=== PATIENT | male | born 1945 | race Asian ===

== ENCOUNTER 2024-02-28 00:43 | Inpatient (IN) ==
[2024-02-28 01:38] LABS: INR 1.04 (0.83-1.13)
[2024-02-28 01:41] LABS: Hematocrit 40.8 % (38-53); Hemoglobin 13.9 g/dL (13.2-16.3); Mean Corpuscular Hemoglobin 29.4 pg (27-33); Mean Corpuscular Volume 86.4 fL (80-97); Mean Platelet Volume 8.9 fL (7.5-11.2); Platelet Count 267 10^3/uL (150-450); Red Blood Count 4.72 10^6/uL (4.06-5.63); Red Cell Distribution Width 14.4 % (12-17); White Blood Count 5.7 10^3/uL (3.6-10.2)
[2024-02-28 01:44] LABS: ABS Lymphocytes 0.7 10^3/uL (1.0-4.8); ABS Monocytes 1.2 10^3/uL (0.0-1.1); ABS Neutrophils 3.9 10^3/uL (1.5-7.6); ABS Nucleated RBC 0.01 10^3/ul; Eosinophil % 0.2 %; Lymphocyte % 11.9 %; Nucleated Red Blood Cells % 0.1 %/100WBC (0.0-0.8)
[2024-02-28] MEDS ORDERED: Ondansetron 4 mg VIAL 2 MG/ML 2 ml VIAL ONE (02:34)
[2024-02-28 05:28] LABS: ALT 42 U/L (7-52); AST 33 U/L (13-39); Albumin 3.9 g/dL (3.2-5.2); Albumin/Globulin Ratio 1.4 (1-3); Alcohol, S < 13 mg/dL (<13); Alkaline Phosphatase 61 U/L (35-149); Anion Gap 16 mmol/L (2-16); Blood Urea Nitrogen 37 mg/dL (6-24); CO2 Carbon Dioxide 31 mmol/L (22-32); Calcium 8.8 mg/dL (8.6-10.3); Chloride 89 mmol/L (101-111); Creatinine, Serum 1.47 mg/dL (0.67-1.17); Globulin 2.7 g/dL (2-4); Glucose 143 mg/dL (70-100); Potassium 3.3 mmol/L (3.5-5.0); Sodium 136 mmol/L (135-145); Total Bilirubin 1.8 mg/dL (0.2-1.0); Total Protein 6.6 g/dL (6.4-8.9); eGFR CKD-EPI 49.1 (>60)
[2024-02-28] MEDS: Iodixanol (CONTRAST) 320 MG/ML 100 ML SDV IV ONE (06:23)
[2024-02-28] MEDS: Lactated Ringers 1000 ml BAG 1,000 ML IV ONE (10:10)
[2024-02-28] MEDS: Thiamine 100 MG/ML 2 ml VIAL (200 mg) IM ONE (10:14)
[2024-02-28] MEDS: Ondansetron 4 mg VIAL 2 MG/ML 2 ml VIAL IV PRN (10:18)
[2024-02-28 10:25] LABS: Magnesium 2.9 mg/dL (1.9-2.7)
[2024-02-28 10:40] LABS: Carcinoembryonic Antigen 25.8 ng/mL (0.1-5.0)
[2024-02-28] MEDS: KCL 20 MEQ/100 ML IVPREMIX 20 MEQ/100 ML BAG IV SCH (11:00)
[2024-02-28] MEDS ORDERED: Enalaprilat IV 1.25 mg/ml 1 ml VIAL (1.25 MG) IV PRN (15:06)
[2024-02-28] MEDS: Acetaminophen IV 1 GM/100ML 1,000 MG/100 ML BAG IV PRN (16:49)
[2024-02-28] MEDS ORDERED: LORazepam 2 mg VIAL 1 ml IV PUSH SCH (21:00)
[2024-02-29 06:24] LABS: ABS Eosinophils 0.1 10^3/uL (0.0-0.5); ABS Lymphocytes 0.6 10^3/uL (1.0-4.8); ABS Monocytes 0.7 10^3/uL (0.0-1.1); ABS Neutrophils 5.6 10^3/uL (1.5-7.6); ABS Nucleated RBC 0.01 10^3/ul; Eosinophil % 1.3 %; Hematocrit 40.3 % (38-53); Hemoglobin 13.4 g/dL (13.2-16.3); Mean Corpuscular Hgb Conc 33.2 g/dL (31-36); Mean Corpuscular Volume 87.5 fL (80-97); Mean Platelet Volume 9.2 fL (7.5-11.2); Nucleated Red Blood Cells % 0.1 %/100WBC (0.0-0.8); Platelet Count 270 10^3/uL (150-450); Red Cell Distribution Width 14.6 % (12-17); White Blood Count 7.1 10^3/uL (3.6-10.2)
[2024-02-29 06:43] LABS: Calcium 8.2 mg/dL (8.6-10.3); Creatinine, Serum 0.9 mg/dL (0.67-1.17); Magnesium 2.8 mg/dL (1.9-2.7); Potassium 3.5 mmol/L (3.5-5.0); eGFR CKD-EPI 88.5 (>60)
[2024-02-29] MEDS: Lactated Ringers 1000 ml BAG 1,000 ML IV SCH (08:56)
[2024-02-29] MEDS: Multivitamins/Minerals TAB PO SCH (11:01)
[2024-02-29] MEDS: Thiamine 100 MG/ML 2 ml VIAL 100 MG in NS 0.9% 50 ML 50 ML IV SCH (11:49)
[2024-02-29] MEDS ORDERED: Haloperidol 5 mg/ml SDV IV/IM 5 MG/ML AMP IV SLOW PU PRN (12:27)
[2024-02-29] MEDS ORDERED: fentaNYL 100 mcg/2 ml 50 MCG/ML VIAL IV PRN (12:27)
[2024-02-29] MEDS ORDERED: Naloxone 0.4 mg VIAL 0.4 mg/ml 1 ml VIAL IV PRN (12:27)
[2024-02-29] MEDS ORDERED: Lidocaine 4 MG/ML IV PREMIX 200 MG/50 ML BAG IV SCH (13:00)
[2024-02-29] MEDS: Pantoprazole VIAL 40 MG VIAL IV SCH (13:25)
[2024-02-29] MEDS ORDERED: diazePAM INJ CARPUJECT 5 MG/ML SYRINGE IV PRN (13:42)
[2024-02-29] MEDS: Enoxaparin 40 MG/0.4 ML SYR SUBCUT SCH (18:06)
[2024-03-01 07:13] LABS: ABS Eosinophils 0.2 10^3/uL (0.0-0.5); ABS Lymphocytes 0.7 10^3/uL (1.0-4.8); ABS Monocytes 0.8 10^3/uL (0.0-1.1); ABS Neutrophils 4.7 10^3/uL (1.5-7.6); Hematocrit 39.5 % (38-53); Hemoglobin 13.3 g/dL (13.2-16.3); Lymphocyte % 10.2 %; Mean Corpuscular Hemoglobin 29.3 pg (27-33); Mean Corpuscular Hgb Conc 33.6 g/dL (31-36); Mean Corpuscular Volume 87.2 fL (80-97); Mean Platelet Volume 9.2 fL (7.5-11.2); Platelet Count 270 10^3/uL (150-450); Red Blood Count 4.53 10^6/uL (4.06-5.63); Red Cell Distribution Width 14.3 % (12-17); White Blood Count 6.4 10^3/uL (3.6-10.2)
[2024-03-01 07:39] LABS: Albumin 3.1 g/dL (3.2-5.2); Albumin/Globulin Ratio 1.3 (1-3); Calcium 7.8 mg/dL (8.6-10.3); Creatinine, Serum 0.7 mg/dL (0.67-1.17); Globulin 2.4 g/dL (2-4); Magnesium 2.6 mg/dL (1.9-2.7); Potassium 3.6 mmol/L (3.5-5.0); Total Bilirubin 0.8 mg/dL (0.2-1.0); Total Protein 5.5 g/dL (6.4-8.9); eGFR CKD-EPI 95.5 (>60)
[2024-03-01] MEDS: Lactated Ringers 1000 ml BAG 1,000 ML IV SCH (09:37)
[2024-03-01] MEDS: Buffered Lidocaine 1% SYRIN 1 ml INTRADERM ONE (14:14)
[2024-03-01] MEDS: Scopolamine 1 mg/72hr PATCH TRANSDERM ONE (14:14)
[2024-03-02 02:00] LABS: Hematocrit 37.4 % (38-53); Hemoglobin 12.1 g/dL (13.2-16.3)
[2024-03-02 07:46] LABS: ABS Eosinophils 0.1 10^3/uL (0.0-0.5); ABS Lymphocytes 0.7 10^3/uL (1.0-4.8); ABS Monocytes 0.8 10^3/uL (0.0-1.1); ABS Neutrophils 4.1 10^3/uL (1.5-7.6); Eosinophil % 1.3 %; Hematocrit 33.5 % (38-53); Lymphocyte % 12.1 %; Mean Corpuscular Hemoglobin 28.6 pg (27-33); Mean Corpuscular Hgb Conc 32.7 g/dL (31-36); Mean Corpuscular Volume 87.5 fL (80-97); Mean Platelet Volume 9.6 fL (7.5-11.2); Nucleated Red Blood Cells % 0.1 %/100WBC (0.0-0.8); Platelet Count 261 10^3/uL (150-450); Red Blood Count 3.83 10^6/uL (4.06-5.63); Red Cell Distribution Width 14.6 % (12-17); White Blood Count 5.7 10^3/uL (3.6-10.2)
[2024-03-02 08:00] LABS: Calcium 7.4 mg/dL (8.6-10.3); Creatinine, Serum 0.78 mg/dL (0.67-1.17); Magnesium 2.3 mg/dL (1.9-2.7); Potassium 3.8 mmol/L (3.5-5.0); eGFR CKD-EPI 92.4 (>60)
[2024-03-02] MEDS: Pantoprazole VIAL 40 MG VIAL IV SCH (10:14)
[2024-03-02 13:33] LABS: Hematocrit 33.5 % (38-53); Hemoglobin 11.2 g/dL (13.2-16.3)
[2024-03-02 18:59] LABS: Hematocrit 36.1 % (38-53); Hemoglobin 11.3 g/dL (13.2-16.3)
[2024-03-03 06:23] LABS: Hematocrit 32.2 % (38-53); Hemoglobin 10.4 g/dL (13.2-16.3); Mean Corpuscular Hemoglobin 28.1 pg (27-33); Mean Corpuscular Hgb Conc 32.3 g/dL (31-36); Mean Corpuscular Volume 87.2 fL (80-97); Mean Platelet Volume 9.3 fL (7.5-11.2); Platelet Count 279 10^3/uL (150-450); Red Cell Distribution Width 14.1 % (12-17); White Blood Count 9.4 10^3/uL (3.6-10.2)
[2024-03-03] MEDS ORDERED: Midazolam 2 mg/2 ml VIAL 1 mg/ml 2 ml VIAL (2 mg) ONE (06:28)
[2024-03-03] MEDS ORDERED: fentaNYL 100 mcg/2 ml 50 MCG/ML VIAL ONE (06:28)
[2024-03-03] MEDS ORDERED: Rocuronium 50 mg VIAL 10 mg/ml 5 ml VIAL (50 mg) ONE ×3 (06:28→10:46)
[2024-03-03] MEDS ORDERED: Succinylcholine 200 mg VIAL 20 mg/ml 10 ml VIAL (200 mg) ONE (06:34)
[2024-03-03] MEDS ORDERED: Dexamethasone IV 4 MG/ML VIAL 1 ml VIAL ONE ×2 (06:34→11:44)
[2024-03-03] MEDS ORDERED: Lidocaine 2% PF 5 ML VIAL ONE (06:34)
[2024-03-03] MEDS ORDERED: Phenylephrine 40 mcg/mL 10mL (400mcg) SYRINGE ONE ×2 (06:34→09:29)
[2024-03-03] MEDS ORDERED: Ondansetron 4 mg VIAL 2 MG/ML 2 ml VIAL ONE (06:34)
[2024-03-03] MEDS ORDERED: Glycopyrrolate IV 0.2 MG/ML 1 ML VIAL ONE (06:34)
[2024-03-03] MEDS ORDERED: Propofol 10 MG/ML 20 ML BTL ONE (06:34)
[2024-03-03 06:59] LABS: Calcium 7.3 mg/dL (8.6-10.3); Creatinine, Serum 0.78 mg/dL (0.67-1.17); Potassium 3.4 mmol/L (3.5-5.0); eGFR CKD-EPI 92.4 (>60)
[2024-03-03 08:16] LABS: ABS Lymphocytes 0.6 10^3/uL (1.0-4.8); ABS Monocytes 0.2 10^3/uL (0.0-1.1); ABS Neutrophils 8.5 10^3/uL (1.5-7.6); Eosinophil % 0.3 %; Lymphocyte % 6.9 %; RBC Morphology Normal (Normal)
[2024-03-03] MEDS ORDERED: Phenylephrine IV 10 MG/ML 1 ml VIAL ONE (09:29)
[2024-03-03] MEDS ORDERED: Bupivacaine 0.5% SDV PF 30ML VIAL ONE (09:33)
[2024-03-03] MEDS ORDERED: HYDROmorphone 0.5 MG/0.5 ML SYRINGE ONE (11:52)
[2024-03-03] MEDS: KCL 20 MEQ/100 ML IVPREMIX 20 MEQ/100 ML BAG IV ONE (14:43)
[2024-03-03] MEDS ORDERED: Morphine 2 MG/ML SYRINGE IV PRN (15:54)
[2024-03-03 21:25] LABS: Hematocrit 29.6 % (38-53); Hemoglobin 9.9 g/dL (13.2-16.3)
[2024-03-03] MEDS: Prochlorperazine 5 mg/ml 2 ml VIAL (10 mg) IV PRN (23:41)
[2024-03-04 06:19] LABS: ABS Lymphocytes 0.4 10^3/uL (1.0-4.8); ABS Monocytes 0.5 10^3/uL (0.0-1.1); ABS Neutrophils 10.9 10^3/uL (1.5-7.6); ABS Nucleated RBC 0.01 10^3/ul; Hematocrit 28.4 % (38-53); Hemoglobin 9.6 g/dL (13.2-16.3); Lymphocyte % 3.5 %; Mean Corpuscular Hemoglobin 29.4 pg (27-33); Mean Corpuscular Hgb Conc 33.8 g/dL (31-36); Mean Corpuscular Volume 86.9 fL (80-97); Mean Platelet Volume 9.3 fL (7.5-11.2); Platelet Count 266 10^3/uL (150-450); Red Blood Count 3.27 10^6/uL (4.06-5.63); Red Cell Distribution Width 14.3 % (12-17); White Blood Count 11.8 10^3/uL (3.6-10.2)
[2024-03-04 06:35] LABS: Calcium 6.8 mg/dL (8.6-10.3); Creatinine, Serum 0.72 mg/dL (0.67-1.17); Magnesium 2.4 mg/dL (1.9-2.7); Phosphorus 2.8 mg/dL (2.5-5.0); Potassium 3.3 mmol/L (3.5-5.0); eGFR CKD-EPI 94.7 (>60)
[2024-03-04] MEDS: KCL 20 MEQ/100 ML IVPREMIX 20 MEQ/100 ML BAG IV SCH (09:18)
[2024-03-04] MEDS: Thiamine 100 MG/ML 2 ml VIAL 100 MG in NS 0.9% 50 ML 50 ML IV SCH (12:02)
[2024-03-04 15:04] LABS: Albumin 2.3 g/dL (3.2-5.2)
[2024-03-04] MEDS: Enoxaparin 40 MG/0.4 ML SYR SUBCUT SCH (17:19)
[2024-03-05 07:24] LABS: ABS Lymphocytes 0.7 10^3/uL (1.0-4.8); ABS Monocytes 0.4 10^3/uL (0.0-1.1); ABS Neutrophils 9.1 10^3/uL (1.5-7.6); ABS Nucleated RBC 0.01 10^3/ul; Eosinophil % 0.3 %; Hematocrit 22.8 % (38-53); Hemoglobin 7.6 g/dL (13.2-16.3); Lymphocyte % 6.8 %; Mean Corpuscular Hemoglobin 29.1 pg (27-33); Mean Corpuscular Hgb Conc 33.4 g/dL (31-36); Mean Corpuscular Volume 87.2 fL (80-97); Mean Platelet Volume 8.6 fL (7.5-11.2); Platelet Count 242 10^3/uL (150-450); Red Blood Count 2.61 10^6/uL (4.06-5.63); Red Cell Distribution Width 14.3 % (12-17); White Blood Count 10.2 10^3/uL (3.6-10.2)
[2024-03-05 08:50] LABS: Calcium 6.6 mg/dL (8.6-10.3); Creatinine, Serum 0.52 mg/dL (0.67-1.17); Potassium 2.8 mmol/L (3.5-5.0); eGFR CKD-EPI 104.5 (>60)
[2024-03-05] MEDS: Multivitamins/Minerals TAB PO SCH (09:42)
[2024-03-05] MEDS: KCL 20 MEQ/100 ML IVPREMIX 20 MEQ/100 ML BAG IV SCH ×2 (10:22→16:05)
[2024-03-05 13:15] LABS: Hematocrit 24.1 % (38-53); Hemoglobin 8.1 g/dL (13.2-16.3)
[2024-03-05] MEDS: Potassium EFFERVES 25 meq TAB PO ONE ×2 (13:19→15:21)
[2024-03-05 19:00] LABS: Calcium 6.9 mg/dL (8.6-10.3); Creatinine, Serum 0.52 mg/dL (0.67-1.17); Magnesium 2.1 mg/dL (1.9-2.7); Potassium 2.9 mmol/L (3.5-5.0); eGFR CKD-EPI 104.5 (>60)
[2024-03-06] MEDS: KCL 20 MEQ/100 ML IVPREMIX 20 MEQ/100 ML BAG IV SCH (00:48)
[2024-03-06 08:28] LABS: ABS Lymphocytes 0.7 10^3/uL (1.0-4.8); ABS Monocytes 0.4 10^3/uL (0.0-1.1); ABS Neutrophils 6.8 10^3/uL (1.5-7.6); ABS Nucleated RBC 0.01 10^3/ul; Eosinophil % 0.2 %; Hemoglobin 8.4 g/dL (13.2-16.3); Lymphocyte % 9.3 %; Mean Corpuscular Hemoglobin 29.2 pg (27-33); Mean Corpuscular Hgb Conc 33.7 g/dL (31-36); Mean Corpuscular Volume 86.8 fL (80-97); Mean Platelet Volume 8.8 fL (7.5-11.2); Nucleated Red Blood Cells % 0.1 %/100WBC (0.0-0.8); Platelet Count 259 10^3/uL (150-450); Red Blood Count 2.88 10^6/uL (4.06-5.63); Red Cell Distribution Width 14.4 % (12-17)
[2024-03-06 08:49] LABS: Albumin 2.4 g/dL (3.2-5.2); Calcium 7.2 mg/dL (8.6-10.3); Creatinine, Serum 0.49 mg/dL (0.67-1.17); Globulin 2.3 g/dL (2-4); Potassium 3.2 mmol/L (3.5-5.0); Total Bilirubin 0.4 mg/dL (0.2-1.0); Total Protein 4.7 g/dL (6.4-8.9); eGFR CKD-EPI 106.4 (>60)
[2024-03-06 10:21] LABS: Magnesium 2.1 mg/dL (1.9-2.7); Phosphorus 1.3 mg/dL (2.5-5.0)
[2024-03-06 11:22] LABS: Carcinoembryonic Antigen 12.6 ng/mL (0.1-5.0)
[2024-03-06] MEDS: Potassium Phosphate IV 15 MMOL in NS 0.9% 250 ml 250 ML IVPB ONE (12:00)
[2024-03-06] MEDS: Potassium Chlor 20 meq TAB.ER PO SCH (12:21)
[2024-03-06 20:17] LABS: Calcium 7.4 mg/dL (8.6-10.3); Creatinine, Serum 0.56 mg/dL (0.67-1.17); Magnesium 2.2 mg/dL (1.9-2.7); Phosphorus 2.3 mg/dL (2.5-5.0); Potassium 3.5 mmol/L (3.5-5.0); eGFR CKD-EPI 102.2 (>60)
[2024-03-07 06:25] LABS: Calcium 6.9 mg/dL (8.6-10.3); Creatinine, Serum 0.54 mg/dL (0.67-1.17); Magnesium 2.1 mg/dL (1.9-2.7); Phosphorus 2.5 mg/dL (2.5-5.0); Potassium 3.4 mmol/L (3.5-5.0); eGFR CKD-EPI 103.3 (>60)
[2024-03-07 09:27] LABS: ABS Eosinophils 0.1 10^3/uL (0.0-0.5); ABS Lymphocytes 0.7 10^3/uL (1.0-4.8); ABS Monocytes 0.4 10^3/uL (0.0-1.1); ABS Neutrophils 6.7 10^3/uL (1.5-7.6); Eosinophil % 0.7 %; Hematocrit 27.4 % (38-53); Hemoglobin 9.2 g/dL (13.2-16.3); Lymphocyte % 8.8 %; Mean Corpuscular Hemoglobin 28.9 pg (27-33); Mean Corpuscular Hgb Conc 33.4 g/dL (31-36); Mean Corpuscular Volume 86.7 fL (80-97); Mean Platelet Volume 8.8 fL (7.5-11.2); Nucleated Red Blood Cells % 0.1 %/100WBC (0.0-0.8); Platelet Count 276 10^3/uL (150-450); Red Blood Count 3.17 10^6/uL (4.06-5.63); Red Cell Distribution Width 14.3 % (12-17); White Blood Count 7.9 10^3/uL (3.6-10.2)
[2024-03-07] MEDS: Potassium Chlor 20 meq TAB.ER PO ONE (10:09)
[2024-03-07] MEDS: KCL 20 MEQ/100 ML IVPREMIX 20 MEQ/100 ML BAG IV ONE (10:41)
[2024-03-07] MEDS: cefTRIAXone 1 gm/50 mL D5W 1 GM/50 ML BAG IV ONE (12:29)
[2024-03-07] MEDS: Heparin 5000 UNITS/ML 1 mL VIAL SUBCUT SCH (12:49)
[2024-03-07] MEDS: Azithromycin 500 mg/250 ml NS 500 MG/250 ML BAG IVPB SCH (13:19)
[2024-03-08 06:50] LABS: ABS Eosinophils 0.1 10^3/uL (0.0-0.5); ABS Monocytes 0.5 10^3/uL (0.0-1.1); ABS Neutrophils 4.4 10^3/uL (1.5-7.6); Eosinophil % 1.1 %; Hematocrit 23.2 % (38-53); Hemoglobin 7.9 g/dL (13.2-16.3); Lymphocyte % 16.8 %; Mean Corpuscular Hemoglobin 29.4 pg (27-33); Mean Corpuscular Hgb Conc 34.2 g/dL (31-36); Mean Corpuscular Volume 85.9 fL (80-97); Mean Platelet Volume 8.8 fL (7.5-11.2); Platelet Count 338 10^3/uL (150-450); Red Cell Distribution Width 14.4 % (12-17)
[2024-03-08 07:04] LABS: Calcium 6.8 mg/dL (8.6-10.3); Creatinine, Serum 0.55 mg/dL (0.67-1.17); Potassium 2.8 mmol/L (3.5-5.0); eGFR CKD-EPI 102.7 (>60)
[2024-03-08] MEDS: KCL 20 MEQ/100 ML IVPREMIX 20 MEQ/100 ML BAG IV SCH (08:46)
[2024-03-08] MEDS: Potassium Chlor 20 meq TAB.ER PO ONE ×2 (11:50→18:32)
[2024-03-08 15:55] LABS: Hemoglobin 8.2 g/dL (13.2-16.3)
[2024-03-08 16:40] LABS: Calcium 7.1 mg/dL (8.6-10.3); Creatinine, Serum 0.59 mg/dL (0.67-1.17); Potassium 2.9 mmol/L (3.5-5.0); eGFR CKD-EPI 100.6 (>60)
[2024-03-09 06:33] LABS: Hematocrit 23.1 % (38-53); Hemoglobin 7.8 g/dL (13.2-16.3); Mean Corpuscular Hgb Conc 33.7 g/dL (31-36); Mean Corpuscular Volume 86.2 fL (80-97); Mean Platelet Volume 7.8 fL (7.5-11.2); Platelet Count 385 10^3/uL (150-450); Red Blood Count 2.68 10^6/uL (4.06-5.63); Red Cell Distribution Width 14.7 % (12-17); White Blood Count 5.3 10^3/uL (3.6-10.2)
[2024-03-09 06:57] LABS: Anion Gap 5 mmol/L (2-16); Blood Urea Nitrogen 2 mg/dL (6-24); CO2 Carbon Dioxide 22 mmol/L (22-32); Chloride 111 mmol/L (101-111); Creatinine, Serum 0.55 mg/dL (0.67-1.17); Glucose 100 mg/dL (70-100); Magnesium 2.2 mg/dL (1.9-2.7); Sodium 138 mmol/L (135-145); eGFR CKD-EPI 102.7 (>60)
[2024-03-09 08:31] LABS: % Iron Saturation 10 % (15-55); .Transferrin 142 mg/dL (203-362); Iron < 20 ug/dL (50-212); Total Iron Binding Capacity 199 mcg/dL (250-450); Unsaturated Iron Binding 179 ug/dL
[2024-03-09 08:54] LABS: Ferritin 90.6 ng/mL (24-336)
[2024-03-09 08:57] LABS: Folate 10.11 ng/mL (5.90-24.80)
[2024-03-09 08:58] LABS: Vitamin B12 1135 pg/mL (180-914)
[2024-03-09] MEDS: Potassium Chlor 20 meq TAB.ER PO ONE ×2 (09:25→17:50)
[2024-03-10 07:16] LABS: ABS Eosinophils 0.1 10^3/uL (0.0-0.5); ABS Lymphocytes 1.1 10^3/uL (1.0-4.8); ABS Monocytes 0.5 10^3/uL (0.0-1.1); ABS Neutrophils 4.5 10^3/uL (1.5-7.6); Eosinophil % 1.2 %; Hematocrit 24.5 % (38-53); Hemoglobin 8.4 g/dL (13.2-16.3); Lymphocyte % 18.1 %; Mean Corpuscular Hgb Conc 34.2 g/dL (31-36); Platelet Count 447 10^3/uL (150-450); Red Blood Count 2.89 10^6/uL (4.06-5.63); Red Cell Distribution Width 14.5 % (12-17); White Blood Count 6.2 10^3/uL (3.6-10.2)
[2024-03-10 07:25] LABS: Calcium 6.9 mg/dL (8.6-10.3); Creatinine, Serum 0.59 mg/dL (0.67-1.17); Magnesium 2.1 mg/dL (1.9-2.7); eGFR CKD-EPI 100.6 (>60)
[2024-03-10] MEDS: Potassium Chlor 20 meq TAB.ER PO SCH (08:10)
[2024-03-11 08:00] LABS: ABS Basophils 0.1 10^3/uL (0.0-0.1); ABS Eosinophils 0.1 10^3/uL (0.0-0.5); ABS Lymphocytes 1.4 10^3/uL (1.0-4.8); ABS Monocytes 0.5 10^3/uL (0.0-1.1); ABS Neutrophils 4.7 10^3/uL (1.5-7.6); Hematocrit 22.4 % (38-53); Hemoglobin 7.8 g/dL (13.2-16.3); Lymphocyte % 20.7 %; Mean Corpuscular Hemoglobin 29.6 pg (27-33); Mean Corpuscular Hgb Conc 34.6 g/dL (31-36); Mean Corpuscular Volume 85.5 fL (80-97); Mean Platelet Volume 7.4 fL (7.5-11.2); Platelet Count 471 10^3/uL (150-450); Red Blood Count 2.62 10^6/uL (4.06-5.63); Red Cell Distribution Width 14.7 % (12-17); White Blood Count 6.7 10^3/uL (3.6-10.2)
[2024-03-11 08:42] LABS: Creatinine, Serum 0.58 mg/dL (0.67-1.17); Magnesium 2.2 mg/dL (1.9-2.7); Potassium 3.2 mmol/L (3.5-5.0); eGFR CKD-EPI 101.1 (>60)
[2024-03-11] MEDS: Gadoxetate (CONTRAST) 181.43 MG/ML 10 ML SDV IV ONE (12:08)
[2024-03-11] MEDS: Potassium Chloride LIQUID 20 MEQ/15 ML LIQUID PO ONE ×2 (16:06→18:34)
[2024-03-12 05:23] LABS: ABS Eosinophils 0.1 10^3/uL (0.0-0.5); ABS Lymphocytes 1.3 10^3/uL (1.0-4.8); ABS Monocytes 0.5 10^3/uL (0.0-1.1); ABS Neutrophils 4.1 10^3/uL (1.5-7.6); Eosinophil % 0.9 %; Hematocrit 23.9 % (38-53); Hemoglobin 8.1 g/dL (13.2-16.3); Lymphocyte % 22.1 %; Mean Corpuscular Hemoglobin 28.9 pg (27-33); Mean Corpuscular Volume 85.2 fL (80-97); Mean Platelet Volume 7.7 fL (7.5-11.2); Nucleated Red Blood Cells % 0.1 %/100WBC (0.0-0.8); Platelet Count 521 10^3/uL (150-450); Red Blood Count 2.81 10^6/uL (4.06-5.63); Red Cell Distribution Width 14.5 % (12-17)
[2024-03-12 05:38] LABS: Calcium 7.2 mg/dL (8.6-10.3); Creatinine, Serum 0.59 mg/dL (0.67-1.17); Magnesium 2.2 mg/dL (1.9-2.7); Phosphorus 2.1 mg/dL (2.5-5.0); Potassium 3.4 mmol/L (3.5-5.0); eGFR CKD-EPI 100.6 (>60)
[2024-03-12 13:44] VITALS: BP 123/67
[2024-03-12] MEDS: Potassium Chloride LIQUID 20 MEQ/15 ML LIQUID PO ONE (14:08)
== END 2024-03-12 16:10 | disposition home health service (06) | DRG 329 ==
LOC: ED 00:43 → EDHOLD 00:43 → OBSVTOIN 09:31 → SUATTDRO 09:32 → MED 14:24 → SSU 03-03 14:55
PROVIDERS: ADMIT Student in an Organized Health Care Education/Training Program; ATTEND Internal Medicine

== ENCOUNTER 2024-08-06 07:58 | Inpatient (IN) ==
[~2024-08-06 07:58] MED LIST: Ertapenem 1 GM in NS 0.9% 50 ML BAG IVPB SCH; Naloxone 0.4 mg VIAL 0.4 mg/ml 1 ml VIAL IV PRN; fentaNYL 100 mcg/2 ml 50 MCG/ML VIAL IV PRN
[2024-08-06] MEDS ORDERED: Heparin 5000 UNITS/ML 1 mL VIAL ONE (09:59)
[2024-08-06 10:07] LABS: Rapid COVID-19 Molecular Undetected (Undetected)
[2024-08-06] MEDS: Lactated Ringers 1000 ml BAG 1,000 ML IV SCH ×2 (10:15→18:46)
[2024-08-06] MEDS: Buffered Lidocaine 1% SYRIN 1 ml INTRADERM ONE (10:16)
[2024-08-06] MEDS ORDERED: Bupivacaine 0.25% w/EPI 10 ML SDV ONE (11:55)
[2024-08-06] MEDS ORDERED: Lidocaine 2% PF 5 ML VIAL ONE (11:56)
[2024-08-06] MEDS ORDERED: Rocuronium 50 mg VIAL 10 mg/ml 5 ml VIAL (50 mg) ONE ×3 (11:56→15:47)
[2024-08-06] MEDS ORDERED: Propofol 10 MG/ML 20 ML BTL ONE (11:56)
[2024-08-06] MEDS ORDERED: fentaNYL 100 mcg/2 ml 50 MCG/ML VIAL ONE ×2 (12:21→14:30)
[2024-08-06] MEDS ORDERED: Dexamethasone IV 4 MG/ML VIAL 1 ml VIAL ONE (14:36)
[2024-08-06] MEDS ORDERED: Ondansetron 4 mg VIAL 2 MG/ML 2 ml VIAL ONE (16:55)
[2024-08-06] MEDS ORDERED: Ondansetron 4 mg VIAL 2 MG/ML 2 ml VIAL IV PRN (17:28)
[2024-08-06] MEDS ORDERED: Morphine 2 MG/ML SYRINGE IV PRN (17:36)
[2024-08-06] MEDS: Acetaminophen IV 1 GM/100ML 1,000 MG/100 ML BAG IV SCH (21:51)
[2024-08-07 10:13] LABS: Activated Partial Thrombo Time 24.8 seconds (26.0-38.0); INR 1.06 (0.85-1.14)
[2024-08-07 10:22] LABS: Albumin 3.5 g/dL (3.2-5.2); Albumin/Globulin Ratio 1.6 (1-3); Calcium 8.2 mg/dL (8.6-10.3); Creatinine, Serum 0.65 mg/dL (0.67-1.17); Globulin 2.2 g/dL (2-4); Phosphorus 4.1 mg/dL (2.5-5.0); Total Bilirubin 0.7 mg/dL (0.2-1.0); Total Protein 5.7 g/dL (6.4-8.9); eGFR CKD-EPI 97.7 (>60)
[2024-08-07 10:35] LABS: Hemoglobin 8.4 g/dL (13.2-16.3); Mean Corpuscular Hemoglobin 23.3 pg (27-33); Mean Corpuscular Hgb Conc 32.4 g/dL (31-36); Mean Corpuscular Volume 71.9 fL (80-97); Mean Platelet Volume 7.7 fL (7.5-11.2); Platelet Count 286 10^3/uL (150-450); Red Blood Count 3.62 10^6/uL (4.06-5.63); Red Cell Distribution Width 18.6 % (12-17); White Blood Count 8.1 10^3/uL (3.6-10.2)
[2024-08-07 10:36] LABS: ABS Lymphocytes 1.3 10^3/uL (1.0-4.8); ABS Monocytes 0.8 10^3/uL (0.0-1.1); Eosinophil % 0.1 %; Lymphocyte % 15.5 %
[2024-08-07 10:38] LABS: Anisocytosis 1+; Microcytosis 2+
[2024-08-07] MEDS: Enoxaparin 40 MG/0.4 ML SYR SUBCUT SCH (13:16)
[2024-08-10 05:58] LABS: ABS Eosinophils 0.3 10^3/uL (0.0-0.5); ABS Lymphocytes 1.7 10^3/uL (1.0-4.8); ABS Monocytes 0.6 10^3/uL (0.0-1.1); ABS Neutrophils 3.7 10^3/uL (1.5-7.6); Calcium 8.3 mg/dL (8.6-10.3); Creatinine, Serum 0.58 mg/dL (0.67-1.17); Eosinophil % 4.4 %; Hematocrit 26.5 % (38-53); Hemoglobin 8.7 g/dL (13.2-16.3); Magnesium 2.2 mg/dL (1.9-2.7); Mean Corpuscular Hemoglobin 23.5 pg (27-33); Mean Corpuscular Hgb Conc 32.9 g/dL (31-36); Mean Corpuscular Volume 71.5 fL (80-97); Mean Platelet Volume 7.8 fL (7.5-11.2); Nucleated Red Blood Cells % 0.1 %/100WBC (0.0-0.8); Phosphorus 3.1 mg/dL (2.5-5.0); Platelet Count 313 10^3/uL (150-450); Potassium 3.5 mmol/L (3.5-5.0); Red Blood Count 3.71 10^6/uL (4.06-5.63); Red Cell Distribution Width 19.4 % (12-17); White Blood Count 6.3 10^3/uL (3.6-10.2); eGFR CKD-EPI 101.1 (>60)
[2024-08-10 14:45] LABS: HIV 4th Generation Nonreactive (Nonreactive)
[2024-08-10 15:23] LABS: Hepatitis C Antibody Negative (Negative)
[2024-08-11 06:30] VITALS: BP 162/83
[2024-08-12 11:03] LABS: Hepatitis B Surface Antigen Nonreactive (Nonreactive)
[2024-08-12 11:20] LABS: Hepatitis B Surface Ab Not Immune (Immune)
[2024-08-12 18:56] LABS: HIV-1 RNA Undetected (Undetected); HIV-2 RNA Undetected (Undetected)
[2024-08-13 14:56] LABS: HIV-1 RNA (PCR) Undetected copies/mL (Undetected)
== END 2024-08-11 09:50 | disposition home or self-care (01) | DRG 331 ==
LOC: AA 07:58 → SSU 18:36
PROVIDERS: ADMIT Surgery; ATTEND Surgery